=== PATIENT | male | born 1970 | race Caucasian/White ===

== ENCOUNTER 2017-10-23 10:55 | Inpatient (IN) | payer OTHER, MEDICAID ==
[~2017-10-23] VITALS: Ht 182.9 cm; Wt 95.0 kg
[2017-10-23] MEDS ORDERED: SODIUM CHLORIDE 0.9% 1,000 ML IVB ONE (11:11)
[2017-10-23] MEDS ORDERED: KETOROLAC TROMETH 30 MG/ML 1ML VIAL IV ONE (11:15)
[2017-10-23 11:21] LABS: Basophils # (auto) 0.1 uL; Basophils % (auto) 0.6 % (0.0-2.0); Eosinophils # (auto) 0 uL; Eosinophils % (auto) 0.2 % (0.0-7.0); Hemoglobin 15.6 g/dL (13.5-17.5); Lymphocytes # (auto) 0.8 uL; Lymphocytes % (auto) 8.6 % (10.0-50.0); Mean Corpuscular Hemoglobin 29.7 pg (28.0-32.0); Mean Corpuscular Hgb Conc. 33.8 g/dL (32.0-36.0); Mean Corpuscular Volume 87.9 fL (80.0-100.0); Monocytes # (auto) 0.3 uL; Monocytes % (auto) 3.4 % (0.0-12.0); Neutrophils # (auto) 7.8 uL; Neutrophils % (auto) 87.2 % (37.0-80.0); Nucleated Red Blood Cells % 0.1 %; Platelet Count (auto) 225 10^3/uL (140-450); Red Blood Cells 5.23 10^6/uL (4.5-5.90); Red Cell Distribution Width 13.8 % (11.8-14.3); White Blood Cell 8.9 10^3/uL (4.4-10.8)
[2017-10-23 11:42] LABS: Albumin 3.7 g/dL (3.4-5.0); BUN/Creatinine Ratio 8.8; Bilirubin, Total 0.5 mg/dL (0.2-1.0); Calcium 8.4 mg/dL (8.5-10.1); Potassium 3.9 mmol/L (3.5-5.1); Total Protein 7.1 g/dL (6.4-8.2)
[2017-10-23] MEDS ORDERED: MORPHINE SULF(PF) 0.5MG/ML 10ML VIAL IV PRN (13:15)
[2017-10-23] MEDS ORDERED: DEXTROSE (50%) 50ML SYRG IV PRN (13:15)
[2017-10-23] MEDS ORDERED: NITROGLYCERIN 0.4 MG SL TAB SL PRN (13:15)
[2017-10-23] MEDS ORDERED: PROMETHAZINE HCL 25 MG/ML 1ML IV PRN (13:15)
[2017-10-23] MEDS ORDERED: TEMAZEPAM 15 MG CAP PO PRN (13:15)
[2017-10-23] MEDS ORDERED: ACETAMINOPHEN 500 MG TAB PO PRN (13:15)
[2017-10-23] MEDS ORDERED: IBUPROFEN 400 MG TAB PO PRN (13:15)
[2017-10-23] MEDS ORDERED: KETOROLAC TROMETH 30 MG/ML 1ML VIAL IV PRN (13:15)
[2017-10-23] MEDS ORDERED: cefTRIAXone 1GM/10ml IVPUSH 10 ML IV ONE (13:15)
[2017-10-23] MEDS: SODIUM CHLORIDE 0.9% 1,000 ML IV SCH ×2 (13:30→23:04)
[2017-10-23] MEDS: FAMOTIDINE 20 MG TAB PO SCH ×2 (13:41→22:37)
[2017-10-23] MEDS ORDERED: CLINDAMYCIN 300MG IV 50 ML IV ONE (16:45)
[2017-10-23] MEDS: InsuLIN REG 1unit/0.01ml Soln (100units/ml) SC SCH ×2 (17:00→22:00)
[2017-10-23] MEDS: ACCU-CHEK COMFORT CURVE STRIP VI SCH ×2 (17:08→22:37)
[2017-10-23 18:44] VITALS: BP 145/104
[2017-10-23 22:00] VITALS: BP 134/82
[2017-10-23] MEDS: CLINDAMYCIN 300MG IV 50 ML IV SCH ×2 (22:00→22:37)
[2017-10-24] MEDS ORDERED: CEPH250C PO (04:44)
[2017-10-24 05:05] VITALS: BP 114/71
[2017-10-24] MEDS: CLINDAMYCIN 300MG IV 50 ML IV SCH ×3 (05:45→14:00)
[2017-10-24] MEDS: InsuLIN REG 1unit/0.01ml Soln (100units/ml) SC SCH ×2 (07:00→11:30)
[2017-10-24] MEDS: ACCU-CHEK COMFORT CURVE STRIP VI SCH ×2 (07:00→11:55)
[2017-10-24 08:21] LABS: Calcium 7.6 mg/dL (8.5-10.1); Potassium 3.7 mmol/L (3.5-5.1)
[2017-10-24 08:23] LABS: BUN/Creatinine Ratio 11.4
[2017-10-24 08:25] LABS: Bilirubin, Total 0.4 mg/dL (0.2-1.0); Total Protein 6.3 g/dL (6.4-8.2)
[2017-10-24 08:46] VITALS: BP 132/80
[2017-10-24] MEDS ORDERED: cefTRIAXone 1GM/10ml IVPUSH 10 ML IV SCH (09:00)
[2017-10-24] MEDS: SODIUM CHLORIDE 0.9% 1,000 ML IV SCH (09:04)
[2017-10-24] MEDS: FAMOTIDINE 20 MG TAB PO SCH (09:21)
[2017-10-24 13:05] VITALS: BP 107/70
== END 2017-10-24 16:26 | disposition home or self-care (01) | DRG 683 ==
LOC: ER 10:55 → TELE 10:56 → TELE-CENTR 17:23
PROVIDERS: ADMIT Internal Medicine; ATTEND Internal Medicine
DX: N17.9 Acute kidney failure, unspecified (principal); L03.113 Cellulitis of right upper limb; K57.30 Diverticulosis of large intestine without perforation or abscess without bleeding; N13.2 Hydronephrosis with renal and ureteral calculous obstruction; K40.20 Bilateral inguinal hernia, without obstruction or gangrene, not specified as recurrent; F15.90 Other stimulant use, unspecified, uncomplicated; R73.9 Hyperglycemia, unspecified; Z87.81 Personal history of (healed) traumatic fracture
CPT/HCPCS: 36415; 74176; 80053; 82962; 83036; 83690; 85025; 87081; 94761; 96361; 96374; 96375; J1885; J3490

== ENCOUNTER 2021-04-30 15:52 | Emergency (ER) | payer OTHER, MEDICAID ==
[~2021-04-30] VITALS: Ht 182.9 cm; Wt 95.3 kg
[~2021-04-30 15:52] MED LIST: CEPH-322 PO
[2021-04-30 18:36] VITALS: BP 155/85
== END 2021-04-30 18:46 | disposition home or self-care (01) ==
LOC: ER 15:52
DX: S01.01XA Laceration without foreign body of scalp, initial encounter (principal); Z79.899 Other long term (current) drug therapy; W17.89XA Other fall from one level to another, initial encounter; Y93.89 Activity, other specified; Y92.89 Other specified places as the place of occurrence of the external cause; Y99.8 Other external cause status
CPT/HCPCS: 12002; 70450; 72125